=== PATIENT | male | born 1960 | race Caucasian/White ===

== ENCOUNTER 2019-01-30 13:48 | Emergency (ER) | payer OTHER ==
[2019-01-30 14:52] VITALS: BP 162/86; PULSE 118; O2SAT 95
--- NOTE | 2019-01-30 15:14 | ERPHSYRPT ---
- History of Present Illness Time Seen by Provider: 01/30/19 14:58 Source: patient Exam Limitations: no limitations Patient Subjective Stated Complaint: right middle finger believed to have an ingrown nail that is infected. Went to [facility] a week ago and was given an antibiotic and finger is still red and inflamed. Triage Nursing Assessment: Pt's right middle finger is believed to have an ingrown nail that is infected. Went to [facility] a week ago and was given an antibiotic and finger is still red and inflamed. Pt has no feeling in his fingers due to neuropathy, right leg below the knee ampute Physician History: Pt has been c/o infected right middle finger nail for 10 days. He was seen at an urgent care clinic last week and started on PO Keflex. He denies fever, chills, headaches, difficulty breathing or other complaints. Occurred: days ago (10) Method of Injury: other (denies) Quality: constant Severity of Pain-Max: moderate Severity of Pain-Current: moderate Extremities Pain Location: 3rd finger: right Modifying Factors: Improves With: nothing Associated Symptoms: none Allergies/Adverse Reactions: No Known Drug Allergies Allergy (Verified 01/30/19 14:52) Hx Tetanus, Diphtheria Vaccination/Date Given: Yes (1-2 years) - Review of Systems Constitutional: No Symptoms Respiratory: No Symptoms Cardiac: No Symptoms Abdominal/Gastrointestinal: No Symptoms Musculoskeletal: Other (right middle finger nail bed is painful, overgrown.) Skin: No Symptoms Neurological: No Symptoms All Other Systems: Reviewed and Negative - Past Medical History Neurological History: TIA Endocrine Medical History: Diabetes Type II GI Medical History: GERD - Past Surgical History Past Surgical History: Yes Musculoskeletal: Amputation - Social History Smoking Status: Former smoker Exposure to second hand smoke: No Drug Use: none Patient Lives Alone: No - Nursing Vital Signs Nursing Vital Signs: Initial Vital Signs Temperature 98.8 F 01/30/19 14:37 Pulse Rate 118 H 01/30/19 14:37 Blood Pressure 162/86 01/30/19 14:37 O2 Sat by Pulse Oximetry 95 01/30/19 14:37 Pain Scale Pain Intensity 0 - Physical Exam General Appearance: no apparent distress Eyes, Ears, Nose, Throat Exam: normal ENT inspection Neck Exam: normal inspection, non-tender Cardiovascular/Respiratory Exam: chest non-tender, normal breath sounds, heart sounds normal Abdominal Exam: non-tender Back Exam: normal inspection Hand Exam: no evidence of injury (right middle finger nail, ulnar nail bed is swollen, about 1 mm of the nail edge has been cut all the way to the matrix,( patient himself cut it out a week ago) but there is no abscess, or drainage only granulation tissue overgrow, no severe erythema or edema. ) Neuro/Tendon Exam: normal motor functions Skin Exam: normal color, warm, dry SpO2 Interpretation: normal SpO2: 95 O2 Delivery: Room Air - Course Nursing assessment & vital signs reviewed: Yes - Progress Progress: unchanged Progress Note: 01/30/19 15:14 I explained him, that this ingrown nail is currently not infected, it is becoming a chronic condition, and there is no abscess or acute infection we could correct. He will need to contact a surgeon ( hand or plastic surgeon) to correct the nail overgrowth. He understood and will follow up with a surgeon next week. Counseled pt/family regarding: diagnosis, need for follow-up (with surgeon) - Departure Departure Disposition: Home Clinical Impression: Ingrown fingernail Condition: Stable Critical Care Time: No Instructions: Paronychia Additional Instructions: Continue daily antiseptic soaks, and antibiotic ointments, and follow up with surgeon next week!
== END 2019-01-30 15:36 | disposition home or self-care (01) ==
LOC: ED 13:48
DX: L60.0 Ingrowing nail (principal); E11.9 Type 2 diabetes mellitus without complications; K21.9 Gastro-esophageal reflux disease without esophagitis; Z86.73 Personal history of transient ischemic attack (TIA), and cerebral infarction without residual deficits
CPT/HCPCS: 99283

== ENCOUNTER 2019-02-14 10:18 | Emergency (ER) | payer OTHER ==
[2019-02-14] MEDS ORDERED: Sodium Chloride 0.9% 1000 ML 1,000 ML IV STA ×2 (11:23→14:36)
[2019-02-14] MEDS ORDERED: Sodium Chloride 0.9% 1000 ML 1,000 ML ONE ×2 (11:27→14:39)
[2019-02-14 11:30] LABS: ANION GAP 15.6 MEQ/L (5-15); BLOOD UREA NITROGEN 18 mg/dL (9-20); CHLORIDE 98 mmol/L (98-107); Calcium 10.1 mg/dL (8.4-10.2); Carbon Dioxide 24 mmol/L (22-30); Creatinine 1 0.94 mg/dL (0.66-1.25); Glucose 324 mg/dL (74-106); Potassium 4.4 mmol/L (3.5-5.1); SODIUM 133 mmol/L (137-145)
[2019-02-14 11:32] LABS: Hematocrit 44.7 % (42-50); Hemoglobin 14.6 gm/dl (12.5-18.0); Mean Cell Volume 56.9 fl (78-100); Mean Corpuscular Hgb Concent. 32.7 g/dl (32-36); Platelet Count 195 K/mm3 (150-450); Red Cell Distribution Width 22.4 % (11.5-14.0); White Blood Count 21.5 K/mm3 (4.0-10.5)
[2019-02-14 11:37] LABS: Mean Corpuscular Hemoglobin 18.5 pg (26-32); Red Blood Count 7.85 M/mm3 (4.1-5.6)
[2019-02-14 11:41] LABS: BAND 6 % (0.0-2.0); Basophil 1 % (0.0-1.0); Lymphocytes 7 % (24-44); Monocyte 7 % (0.0-12.0); Neutrophils 79 % (36.-66.); Platelet Estimate NORMAL (NORMAL); Total Cells Counted 100
[2019-02-14 11:43] LABS: Polychromasia 2+
[2019-02-14 11:44] LABS: ANISOCYTOSIS 3+; Poikilocytosis 2+
[2019-02-14 11:45] LABS: Microcytosis 3+; Tear Drop Cells 1+
[2019-02-14 11:49] LABS: Ovalocytes 1+
[2019-02-14] MEDS ORDERED: NovoLOG Insulin SQ ONE (11:53)
[2019-02-14] MEDS ORDERED: NovoLOG Insulin ONE (11:57)
[2019-02-14 12:55] LABS: Appearance CLOUDY (CLEAR); Bilirubin NEGATIVE (NEGATIVE); Blood 50 Ery/ul (0-5); Glucose 1000 mg/dL (NEGATIVE); Ketones TRACE (NEGATIVE); Leukocyte Esterase 2+ (NEGATIVE); Nitrite NEGATIVE (NEGATIVE); Protein,Urine Dip 300 (Negative); Urobilinogen 4 mg/dL (0-1)
[2019-02-14 12:58] LABS: Amourphous Crystal MODERATE /HPF (NEGATIVE); Bacteria MODERATE /HPF (NEGATIVE); Epithelial Cells FEW /HPF (FEW)
[2019-02-14] MEDS ORDERED: ROCEPHIN 1 Gm-D5w 50 ml Bag** 1 G/50 ML IVPB IV STA (13:02)
[2019-02-14] MEDS ORDERED: ROCEPHIN 1 Gm-D5w 50 ml Bag** 1 G/50 ML IVPB IV ONE (13:07)
--- NOTE | 2019-02-14 15:57 | ERPHSYRPT ---
- History of Present Illness Source: patient Exam Limitations: no limitations Patient Subjective Stated Complaint: STATES DIFFICULTY PEEING. USUALLY FILLS 2 URINALS THROUGHOUT NIGHT. ONLY WENT APPROX 1/2 CUP LAST NIGHT. STATES THIS IS NOT NORMAL FOR HIM. HE DRANK 3 BOTTLES OF WATER THROUGHOUT NIGHT. Triage Nursing Assessment: ALERT AND ORIENTED. USES WHEELCHAIR FOR MOBILITY. ABLE TO VOID SMALL AMOUNT OF DARK YELLOW URINE IN SPECIMIN CUP WITHOUT DIFFICULTY. NO EDEMA. Physician History: Pt is a 58 y/o male that presented to the ED with signs and symptoms of UTI. Pt states, that his urine out put through the night, was very low, and he feels some pressure when he is urinating. Pt states, has DM II, but he did not see his PCP for a couple of years. He states, his previous PCP, still prescribes his meds for him. Pt denies F/C/S. No SOB or cough. No chest discomfort. Timing/Duration: today Activites at Onset: none Severity of Pain-Max: none Severity of Pain-Current: none Modifying Factors: Improves With: nothing Associated Symptoms: denies symptoms (decrease in urine output) Allergies/Adverse Reactions: No Known Drug Allergies Allergy (Verified 01/30/19 14:52) Hx Tetanus, Diphtheria Vaccination/Date Given: Yes (2015) Hx Influenza Vaccination/Date Given: No Hx Pneumococcal Vaccination/Date Given: No - Past Medical History Neurological History: TIA Endocrine Medical History: Diabetes Type II GI Medical History: GERD - Past Surgical History Past Surgical History: Yes Musculoskeletal: Amputation Other Surgical History: CYST REMOVED RIGHT WRIST - Social History Smoking Status: Former smoker Exposure to second hand smoke: No Drug Use: none Patient Lives Alone: No - Review of Systems Constitutional: No Fever, No Chills Eyes: No Symptoms Ears, Nose, & Throat: No Symptoms Respiratory: No Cough, No Dyspnea Cardiac: No Chest Pain, No Edema, No Syncope Abdominal/Gastrointestinal: No Abdominal Pain, No Nausea, No Vomiting, No Diarrhea Genitourinary Symptoms: Frequency, Other (decrease in urine out put.) Musculoskeletal: No Back Pain, No Neck Pain Skin: No Rash Neurological: No Dizziness, No Focal Weakness, No Sensory Changes Psychological: No Symptoms Endocrine: Polyuria - Nursing Vital Signs Nursing Vital Signs: Initial Vital Signs Temperature 98 F 02/14/19 10:53 Pulse Rate 128 H 02/14/19 10:53 Respiratory Rate 22 02/14/19 10:53 Blood Pressure 148/103 02/14/19 10:53 O2 Sat by Pulse Oximetry 93 L 02/14/19 10:53 Pain Scale Pain Intensity 0 - Physical Exam General Appearance: no apparent distress, alert Eye Exam: PERRL/EOMI Ears, Nose, Throat Exam: pharynx normal, moist mucous membranes Neck Exam: normal inspection, supple Respiratory Exam: normal breath sounds, lungs clear Cardiovascular Exam: regular rate/rhythm, No edema Gastrointestinal/Abdomen Exam: soft, No tenderness Back Exam: normal inspection, No CVA tenderness Extremity Exam: normal inspection, normal range of motion, other (BVKA of R LE) , No pedal edema Neurologic Exam: alert, oriented x 3, cooperative, sensation nml, No motor deficits SpO2: 98 - Course Nursing assessment & vital signs reviewed: Yes Ordered Tests: Active Orders 24 hr Category Date Time Status Clean Catch Urine Specimen STAT Care 02/14/19 10:46 Active BMP Stat Lab 02/14/19 10:45 Completed CBC W DIFF Stat Lab 02/14/19 10:45 Results CULTURE,URINE Stat Lab 02/14/19 11:00 Received Manual Differential NC Stat Lab 02/14/19 10:45 Results Pathologist Review Stat Lab 02/14/19 10:45 Results Urinalysis with Microscopy Stat Lab 02/14/19 11:00 Completed Medication Summary Discontinued Medications Generic Name Dose Route Start Last Admin Trade Name Weston PRN Reason Stop Dose Admin Sodium Chloride 1,000 mls @ 999 mls/hr 02/14/19 11:23 02/14/19 15:30 Sodium Chloride 0.9% 1000 Ml IV 02/14/19 12:23 Infused .Q1H1M STA Infusion Sodium Chloride Confirm 02/14/19 11:27 Sodium Chloride 0.9% 1000 Ml Administered 02/14/19 11:28 Dose 1,000 mls @ ud .ROUTE .STK-MED ONE Ceftriaxone Sodium/Dextrose 1 g in 50 mls @ 100 mls/hr 02/14/19 13:02 15:31 Rocephin 1 Gm-D5w 50 Ml Bag IV 02/14/19 13:31 Infused STAT STA Infusion Ceftriaxone Sodium/Dextrose Confirm 02/14/19 13:07 Rocephin 1 Gm-D5w 50 Ml Bag Administered 02/14/19 13:08 Dose 1 g in 50 mls @ ud IV .STK-MED ONE Sodium Chloride 1,000 mls @ 999 mls/hr 02/14/19 14:36 02/14/19 14:40 Sodium Chloride 0.9% 1000 Ml IV 02/14/19 15:36 999 mls/hr .Q1H1M STA Administration Sodium Chloride Confirm 02/14/19 14:39 Sodium Chloride 0.9% 1000 Ml Administered 02/14/19 14:40 Dose 1,000 mls @ ud .ROUTE .STK-MED ONE Insulin Aspart 10 unit 02/14/19 11:53 02/14/19 11:58 Novolog Insulin SQ 02/14/19 11:54 10 unit STAT ONE Administration Insulin Aspart Confirm 02/14/19 11:57 Novolog Insulin Administered 02/14/19 11:58 Dose 10 unit .ROUTE .STK-MED ONE Lab/Rad Data: Laboratory Result Diagrams 02/14/19 10:45 02/14/19 10:45 Laboratory Results 02/14/19 02/14/19 02/14/19 Range/Units 11:00 10:45 10:45 WBC 21.5 H (4.0-10.5) K/mm3 RBC 7.85 H* (4.1-5.6) M/mm3 Hgb 14.6 (12.5-18.0) gm/dl Hct 44.7 (42-50) % MCV 56.9 L (78-100) fl MCH 18.5 L (26-32) pg MCHC 32.7 (32-36) g/dl RDW 22.4 H (11.5-14.0) % Plt Count 195 (150-450) K/mm3 Segmented Neutrophils 79 H (36.-66.) % Band Neutrophils 6 H (0.0-2.0) % Lymphocytes (Manual) 7 L (24-44) % Monocytes (Manual) 7 (0.0-12.0) % Basophils (Manual) 1 (0.0-1.0) % Platelet Estimate NORMAL (NORMAL) RBC Morphology ABNORMAL Polychromasia 2+ Poikilocytosis 2+ Anisocytosis 3+ Microcytosis 3+ Tear Drop Cells 1+ Ovalocytes 1+ Smear Path Review Pending Sodium 133 L (137-145) mmol/L Potassium 4.4 (3.5-5.1) mmol/L Chloride 98 (98-107) mmol/L Carbon Dioxide 24 (22-30) mmol/L Anion Gap 15.6 H (5-15) MEQ/L BUN 18 (9-20) mg/dL Creatinine 0.94 (0.66-1.25) mg/dL Estimated GFR > 60.0 ML/MIN Glucose 324 H (74-106) mg/dL Calcium 10.1 (8.4-10.2) mg/dL Urine Color YELLOW (YELLOW) Urine Appearance CLOUDY (CLEAR) Urine pH 5.0 (5-6) Ur Specific Lamont 1.030 (1.005-1.025) Urine Protein 300 (Negative) Urine Ketones TRACE (NEGATIVE) Urine Blood 50 (0-5) Bravo/ul Urine Nitrite NEGATIVE (NEGATIVE) Urine Bilirubin NEGATIVE (NEGATIVE) Urine Urobilinogen 4 (0-1) mg/dL Ur Leukocyte Esterase 2+ (NEGATIVE) Urine WBC (Auto) 16-25 (0-5) /HPF Urine RBC (Auto) 6-10 (0-2) /HPF U Epithel Cells (Auto) FEW (FEW) /HPF Urine Bacteria (Auto) MODERATE (NEGATIVE) /HPF Amorphous Crystals MODERATE (NEGATIVE) /HPF Urine Glucose 1000 (NEGATIVE) mg/dL - Progress Progress: improved Progress Note: 02/14/19 15:59 Pt had UA that showed elevated leukocyte esterase, and increase in WBCs. Pt had elevated BG. sCr was normal. Pt was given IVF 2 lit bolus, and his urination improved. He got Ceftriaxone IV, and Humalog 10iu once. Pt is feeling much better and is cleared to D/C on Omnicef PO. He should get a PCP in the area, and f/u closly, as I am sure that his A1C is high. Will see patient in: office Counseled pt/family regarding: need for follow-up - Departure Departure Disposition: Home Clinical Impression: UTI (urinary tract infection) Condition: Stable Critical Care Time: No Referrals: DOCTOR,NO FAMILY [Primary Care Provider] - Additional Instructions: F/U with PCP, and make sure to check BG and take meds, as ordered. Prescriptions: Cefdinir [Omnicef] 300 mg PO BID 7 Days #14 capsule
[2019-02-14 16:11] VITALS: BP 146/89; PULSE 126; O2SAT 97
== END 2019-02-14 16:25 | disposition home or self-care (01) ==
LOC: ED 10:18
DX: N39.0 Urinary tract infection, site not specified (principal); E11.9 Type 2 diabetes mellitus without complications; K21.9 Gastro-esophageal reflux disease without esophagitis
CPT/HCPCS: 36000; 36415; 80048; 81001; 82962; 85025; 87077; 87086; 87186; 96360; 96361; 96365; 96372; 99284; J0696; A9270-GY

== ENCOUNTER 2022-12-07 15:29 | Emergency (ER) | payer OTHER ==
[2022-12-07] MEDS ORDERED: BACIGUENT PACKET ONE (15:43)
[2022-12-07] MEDS ORDERED: BACIGUENT PACKET TP ONE ×2 (15:43→15:44)
[2022-12-07 15:48] VITALS: PULSE 111; O2SAT 98
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
[2022-12-07 16:07] VITALS: BP 140/86
== END 2022-12-07 16:06 | disposition home or self-care (01) ==
LOC: ED 15:29
DX: T23.221A Burn of second degree of single right finger (nail) except thumb, initial encounter (principal); E11.42 Type 2 diabetes mellitus with diabetic polyneuropathy; Z79.4 Long term (current) use of insulin; Z79.899 Other long term (current) drug therapy
CPT/HCPCS: 87070; 99281; A9270-GY